=== PATIENT | male | born 2000 | race Two or more races ===

== ENCOUNTER 2021-08-24 12:57 | Emergency (ER) | payer BC ==
[~2021-08-24] VITALS: Ht 182.9 cm; Wt 70.3 kg
[2021-08-24 13:51] VITALS: BP 138/97
[2021-08-24] MEDS ORDERED: IBUP800T27 PO (14:47)
== END 2021-08-24 14:52 | disposition home or self-care (01) ==
LOC: ER 12:57
DX: S80.12XA Contusion of left lower leg, initial encounter (principal); X58.XXXA Exposure to other specified factors, initial encounter; Y93.89 Activity, other specified; Y92.89 Other specified places as the place of occurrence of the external cause; Y99.8 Other external cause status
CPT/HCPCS: 73590; 73610